=== PATIENT | male | born 1980 | race Caucasian/White ===

== ENCOUNTER 2016-12-14 23:19 | Emergency (ER) | payer MEDICAID ==
[~2016-12-14] VITALS: Ht 167.6 cm; Wt 86.0 kg
[2016-12-15 01:00] VITALS: Ht 167.6 cm; Wt 86.0 kg
[2016-12-15 05:16] VITALS: BP 135/96; PULSE 95; RESP 18; TEMP 98.5
--- NOTE | 2016-12-15 06:20 | ERD ---
ER Documentation Chief Complaint Date/Time DATE: 12/15/16 TIME: 06:20 Chief Complaint Insect bite and infected HPI 36 year old male presents with CC of left lower extremity redness and pain x 3 days. Says that the redness appears to be spreading. Patient believes he may have been bit by a spider prior to the onset of symptoms. He characterizes the pain as burning. Currently rates it a 6/10 in severity. He has not taken any medications for relief of symptoms. He denies SOB, pruritus, fever, chills, discharge, and trauma. Denies recent travel. ROS All systems reviewed and are negative except as per history of present illness. Medications Home Meds Active Scripts Sulfamethoxazole-Trimethoprim* (Bactrim* DS) 800-160 Mg Tab, 1 TAB PO BID for 7 Days, #14 TAB Prov:Sheri Goodson PA-C 12/15/16 Cephalexin* (Keflex*) 500 Mg Capsule, 500 MG PO QID for 7 Days, #28 CAP Prov:Sheri Goodson PA-C 12/15/16 PMhx/Soc History of Surgery: No Anesthesia Reaction: No Hx Neurological Disorder: No Hx Respiratory Disorders: No Hx Cardiac Disorders: No Hx Psychiatric Problems: No Hx Miscellaneous Medical Probl: No Hx Alcohol Use: No Hx Substance Use: No Hx Tobacco Use: No Smoking Status: Never smoker Physical Exam Vitals Vital Signs Date Time Temp Pulse Resp B/P Pulse Ox O2 Delivery O2 Flow Rate FiO2 12/15/16 05:16 98.5 95 18 135/96 98 Room Air 12/15/16 01:00 99.0 111 18 154/97 98 Physical Exam GENERAL: Non-toxic. No apparent signs of distress. LUNGS: Clear to auscultation. No accessory muscle use. No wheezing, no crackles. No signs or symptoms of respiratory distress. HEART: Regular rate and rhythm. No murmurs, clicks, rubs or gallops. EXTREMITIES: No peripheral cyanosis or edema. No focal pain or notable trauma. Full range of motion. Good capillary refill. 2+ dorsalis pedis pulses bilaterally. Sensation intact in bilateral lower extremities NEURO: The patient moves all 4 extremities with 5/5 strength. Cranial nerves are grossly intact. Normal mental status for age. Good muscle tone. SKIN: mildl edema and erythema over left fischer, measures 6cm in length and 3cm width. No fluctuance, no active discharge or bleeding. Warm to touch. Good skin turgor. Procedures/MDM Patient presented with mild edema and erythema over left fischer, he had full ROM in bilateral LE, 2+ dorsalis pedis pulse, and good cap refill in the toes. Patients well-demarcated erythematous swelling without any area of fluctuance is consistent with cellulitis. Since a skin culture was not obtained, I will be covering for MRSA. I will be prescribing both Keflex and Bactrim, Patient denies penicillin and sulfa allergy. Patient advised to keep area clean and dry and avoid putting topical creams or medications over the area. Keep area elevated above level of the heart as often as possible to decrease swelling. Also advised to return to the ER if erythema rapidly spreads, patient develops fever, discharge begins to ooze from area, pain increases, have sudden trouble breathing or CP, and/or red streaks or track form from the infected. Currently patient is afebrile and appears to be in NAD. At this time I have a low suspicion for necrotizing fasciitis, DVT, abscess, sepsis, fracture/trauma, and osteomyelitis. Patient is stable for discharge and outpatient care and is advised to follow-up with their PCP in 1-2 days. Departure Diagnosis: Primary Impression: Cellulitis and abscess of leg Condition: Sheri Liriano PA-C Dec 15, 2016 06:20
[2016-12-15] MEDS ORDERED: CEPH-443 PO (06:22)
[2016-12-15] MEDS ORDERED: BACTDS PO (06:22)
== END 2016-12-15 07:48 | disposition home or self-care (01) ==
LOC: FTE 23:19
DX: L02.416 Cutaneous abscess of left lower limb (principal); L03.116 Cellulitis of left lower limb
CPT/HCPCS: 99284